=== PATIENT | male | born 1955 | race African-American/Black ===

== ENCOUNTER 2017-01-07 14:30 | Emergency (ER) | payer OTHER ==
[~2017-01-07] VITALS: Ht 172.7 cm; Wt 75.0 kg
[2017-01-07] MEDS ORDERED: ASPI81 PO (14:34)
[2017-01-07] MEDS ORDERED: METF500T4 PO (14:34)
[2017-01-07 14:42] LABS: GLUCOSE,POINT OF CARE 305 MG/DL (70-110)
[2017-01-07 15:06] LABS: BASOPHILS # (AUTO) 0.01 K/uL (0.00-0.20); BASOPHILS % (AUTO) 0.1 % (0.0-2.0); EOSINOPHILS # (AUTO) 0.11 K/uL (0.00-0.70); EOSINOPHILS % (AUTO) 0.91 % (1.0-6.0); HEMATOCRIT 41.8 % (41-53); HEMOGLOBIN 13.5 g/dL (13.5-17.5); LYMPHOCYTES # (AUTO) 0.9 K/uL (1.0-4.8); LYMPHOCYTES % (AUTO) 7.6 % (22.0-44.0); MEAN CORPUSCULAR HEMOGLOBIN 33.7 pg (26.0-34.0); MEAN CORPUSCULAR HGB CONC 32.4 G/dL (31.0-37.0); MEAN CORPUSCULAR VOLUME 104 fL (80-100); MONOCYTES # (AUTO) 0.9 K/uL (0.1-1.0); MONOCYTES % (AUTO) 7.1 % (2.0-9.0); NEUTROPHILS # (AUTO) 10.5 K/uL (1.8-7.7); PLATELET COUNT (AUTO) 181 K/uL (150-450); RED BLOOD CELL COUNT(AUTO) 4.01 MIL/uL (4.50-5.90); WHITE BLOOD COUNT (AUTO) 12.4 K/uL (4.5-11.0)
[2017-01-07 15:18] LABS: ANION GAP 14 mmol/L (8-16); CALCIUM, TOTAL 10.7 mg/dL (8.8-10.5); CARBON DIOXIDE 27 mmol/L (22-29); CHLORIDE 94 mmol/L (98-107); CREATININE 1.03 mg/dL (0.60-1.30); GLOMERULAR FILTR. RATE CALC > 60 mL/min (>60); POTASSIUM 5.2 mmol/L (3.5-5.1); SODIUM SERUM 135 mmol/L (136-145); UREA NITROGEN, BLOOD 25 mg/dL (7-18)
[2017-01-07 15:39] LABS: NEUTROPHILS % (AUTO) 84.4 % (40.0-70.0); RBC MORPHOLOGY COMMENT ABNORMAL RBC MORPH
[2017-01-07 15:54] LABS: APPEARANCE,URINE CLOUDY (CLEAR); GLUCOSE, URINE (UA) >=1000 mg/dL (NEGATIVE); KETONES,URINE 40 mg/dL (NEGATIVE); LEUKOCYTE ESTERASE ,URINE SMALL (NEGATIVE); OCCULT BLOOD,URINE SMALL (NEGATIVE); PROTEIN,URINE POS 1+ (NEGATIVE)
[2017-01-07 15:57] VITALS: BP 161/112
[2017-01-07 15:57] LABS: ADD UA MICROSCOPIC YES
[2017-01-07 16:00] LABS: SQUAMOUS EPITHELIAL CELL,UR Few /LPF (None Seen); WBC,URINE 26-50 /HPF (0-5)
== END 2017-01-07 16:26 | disposition home or self-care (01) ==
LOC: EMS 14:32
DX: N41.0 Acute prostatitis (principal); K59.00 Constipation, unspecified; E11.9 Type 2 diabetes mellitus without complications; I10 Essential (primary) hypertension; Z79.82 Long term (current) use of aspirin
CPT/HCPCS: 82962; 87086; 99284

== ENCOUNTER 2017-01-09 05:47 | Inpatient (IN) | payer OTHER ==
[~2017-01-09] VITALS: Ht 172.7 cm; Wt 65.7 kg
[~2017-01-09 05:47] MED LIST: ASPI81 PO; METF500T4 PO
[2017-01-09 05:57] LABS: GLUCOSE,POINT OF CARE 330 MG/DL (70-110)
[2017-01-09] MEDS ORDERED: SODIUM CHLORIDE 0.9% 1,000 ML IV ONE (06:30)
[2017-01-09 07:01] LABS: HEMATOCRIT 38.1 % (41-53); HEMOGLOBIN 12.7 g/dL (13.5-17.5); MEAN CORPUSCULAR HEMOGLOBIN 34.2 pg (26.0-34.0); MEAN CORPUSCULAR HGB CONC 33.5 G/dL (31.0-37.0); MEAN CORPUSCULAR VOLUME 102 fL (80-100); PLATELET COUNT (AUTO) 205 K/uL (150-450); RED BLOOD CELL COUNT(AUTO) 3.73 MIL/uL (4.50-5.90); RED CELL DISTRIBUTION WIDTH 13.1 % (11.5-14.5); WHITE BLOOD COUNT (AUTO) 14.3 K/uL (4.5-11.0)
[2017-01-09 07:23] LABS: ALANINE AMINOTRANSFERASE 21 U/L (12-78); ALBUMIN 3.6 g/dL (3.4-5.0); ANION GAP 18 mmol/L (8-16); ASPARTATE AMINOTRANSFERASE 15 U/L (15-37); BILIRUBIN,TOTAL 0.8 mg/dL (0.1-1.0); CALCIUM, TOTAL 10.1 mg/dL (8.8-10.5); CARBON DIOXIDE 20 mmol/L (22-29); CHLORIDE 86 mmol/L (98-107); CREATINE KINASE, TOTAL 66 U/L (39-308); CREATININE 0.88 mg/dL (0.60-1.30); GLOMERULAR FILTR. RATE CALC > 60 mL/min (>60); POTASSIUM 3.5 mmol/L (3.5-5.1); TOTAL PROTEIN, SERUM 8.8 g/dL (6.4-8.2); UREA NITROGEN, BLOOD 21 mg/dL (7-18)
[2017-01-09 07:26] LABS: SODIUM SERUM 124 mmol/L (136-145)
[2017-01-09 07:34] LABS: PROTHROMBIN TIME 10.3 SEC (9.4-11.6)
[2017-01-09 07:41] LABS: B-TYPE NATRIURETIC PEPTIDE 9 pg/mL (0-100)
[2017-01-09 08:32] LABS: GLUCOSE,POINT OF CARE 290 MG/DL (70-110)
[2017-01-09 08:35] LABS: GLUCOSE, URINE (UA) >=1000 mg/dL (NEGATIVE); KETONES,URINE 40 mg/dL (NEGATIVE); LEUKOCYTE ESTERASE ,URINE NEGATIVE (NEGATIVE); OCCULT BLOOD,URINE LARGE (NEGATIVE); PROTEIN,URINE NEGATIVE (NEGATIVE)
[2017-01-09 08:39] LABS: ADD UA MICROSCOPIC YES; APPEARANCE,URINE SLIGHTLY CLOUDY (CLEAR)
[2017-01-09 08:40] LABS: RBC,URINE 51-100 /HPF (0-2); WBC,URINE None Seen /HPF (0-5)
[2017-01-09 09:19] LABS: BAND NEUTROPHILS % (MANUAL) 20 % (1-5); LYMPHOCYTES % (MANUAL) 6 % (22-44); RBC MORPHOLOGY COMMENT ABNORMAL R; TOTAL CELLS COUNTED 100
[2017-01-09 11:32] LABS: GLUCOSE,POINT OF CARE 267 MG/DL (70-110)
[2017-01-09] MEDS ORDERED: DEXTROSE 50%-WATER 25 GM/50 ML SYRINGE IVP PRN (12:30)
[2017-01-09] MEDS ORDERED: MAGNESIUM HYDROXIDE SUSPENSION 30 ML UDCUP PO PRN (12:30)
[2017-01-09] MEDS ORDERED: ACETAMINOPHEN 325 MG TABLET PO PRN (12:30)
[2017-01-09] MEDS: CefTRIAXone 1 GM/DEXTROSE 50 ML IV SCH (13:14)
[2017-01-09] MEDS: TAMSULOSIN HCL 0.4 MG CAPSULE PO SCH ×2 (13:15→20:51)
[2017-01-09 15:04] VITALS: BP 164/99
[2017-01-09 16:38] VITALS: BP 141/92
[2017-01-09] MEDS: INSULIN ASPART 100 UNITS/ML SQ PRN ×2 (17:20→21:02)
[2017-01-09 19:12] LABS: GLUCOSE COMMENT 1 Received Meds; GLUCOSE,POINT OF CARE 219 MG/DL (70-110)
[2017-01-09 19:13] VITALS: BP 135/89
[2017-01-09] MEDS: DOCUSATE SODIUM 100 MG CAPSULE PO SCH (20:51)
[2017-01-09 23:09] VITALS: BP 105/73
[2017-01-10 04:13] VITALS: BP 133/77
[2017-01-10 04:27] LABS: GLUCOSE COMMENT 1 Received Meds; GLUCOSE,POINT OF CARE 296 MG/DL (70-110)
[2017-01-10] MEDS: INSULIN ASPART 100 UNITS/ML SQ PRN ×4 (06:11→22:39)
[2017-01-10 07:33] VITALS: BP 107/62
[2017-01-10] MEDS: TAMSULOSIN HCL 0.4 MG CAPSULE PO SCH ×2 (09:02→20:44)
[2017-01-10] MEDS: PANTOPRAZOLE SODIUM 40 MG DR TABLET PO SCH (09:02)
[2017-01-10] MEDS: DOCUSATE SODIUM 100 MG CAPSULE PO SCH ×2 (09:02→20:44)
[2017-01-10 11:06] LABS: GLUCOSE COMMENT 1 Received Meds; GLUCOSE,POINT OF CARE 213 MG/DL (70-110)
[2017-01-10 11:38] VITALS: BP 122/73
[2017-01-10] MEDS: CefTRIAXone 1 GM/DEXTROSE 50 ML IV SCH (11:51)
[2017-01-10 11:58] LABS: GLUCOSE COMMENT 1 Received Meds; GLUCOSE,POINT OF CARE 317 MG/DL (70-110)
[2017-01-10 12:25] LABS: BASOPHILS # (AUTO) 0.07 K/uL (0.00-0.20); BASOPHILS % (AUTO) 0.7 % (0.0-2.0); EOSINOPHILS # (AUTO) 0.15 K/uL (0.00-0.70); EOSINOPHILS % (AUTO) 1.57 % (1.0-6.0); HEMATOCRIT 38.7 % (41-53); LYMPHOCYTES # (AUTO) 1.4 K/uL (1.0-4.8); LYMPHOCYTES % (AUTO) 14.3 % (22.0-44.0); MEAN CORPUSCULAR HEMOGLOBIN 34.4 pg (26.0-34.0); MEAN CORPUSCULAR HGB CONC 33.5 G/dL (31.0-37.0); MEAN CORPUSCULAR VOLUME 103 fL (80-100); MONOCYTES # (AUTO) 0.8 K/uL (0.1-1.0); MONOCYTES % (AUTO) 8.7 % (2.0-9.0); NEUTROPHILS # (AUTO) 7.3 K/uL (1.8-7.7); NEUTROPHILS % (AUTO) 74.8 % (40.0-70.0); PLATELET COUNT (AUTO) 233 K/uL (150-450); RED BLOOD CELL COUNT(AUTO) 3.76 MIL/uL (4.50-5.90); RED CELL DISTRIBUTION WIDTH 13.1 % (11.5-14.5); WHITE BLOOD COUNT (AUTO) 9.8 K/uL (4.5-11.0)
[2017-01-10 12:29] LABS: RBC MORPHOLOGY COMMENT ABNORMAL RBC MORPH
[2017-01-10 12:36] LABS: ANION GAP 12 mmol/L (8-16); CARBON DIOXIDE 27 mmol/L (22-29); CHLORIDE 97 mmol/L (98-107); CREATININE 0.82 mg/dL (0.60-1.30); GLOMERULAR FILTR. RATE CALC > 60 mL/min (>60); POTASSIUM 3.8 mmol/L (3.5-5.1); SODIUM SERUM 136 mmol/L (136-145); UREA NITROGEN, BLOOD 13 mg/dL (7-18)
[2017-01-10 15:54] VITALS: BP 116/67
[2017-01-10 17:53] LABS: GLUCOSE COMMENT 1 Received Meds; GLUCOSE,POINT OF CARE 420 MG/DL (70-110)
[2017-01-10 19:57] VITALS: BP 114/75
[2017-01-10] MEDS: CEPHALEXIN MONOHYDRATE 500 MG CAPSULE PO SCH (20:44)
[2017-01-10 22:22] LABS: GLUCOSE COMMENT 1 Received Meds; GLUCOSE,POINT OF CARE 309 MG/DL (70-110)
[2017-01-11 00:05] VITALS: BP 100/65
[2017-01-11 05:09] VITALS: BP 134/90
[2017-01-11] MEDS: INSULIN ASPART 100 UNITS/ML SQ PRN ×4 (05:49→20:56)
[2017-01-11 06:12] LABS: GLUCOSE COMMENT 1 Received Meds; GLUCOSE,POINT OF CARE 321 MG/DL (70-110)
[2017-01-11 07:18] VITALS: BP 117/77
[2017-01-11] MEDS: DOCUSATE SODIUM 100 MG CAPSULE PO SCH ×2 (09:00→20:51)
[2017-01-11] MEDS: TAMSULOSIN HCL 0.4 MG CAPSULE PO SCH ×2 (09:00→20:51)
[2017-01-11] MEDS: PANTOPRAZOLE SODIUM 40 MG DR TABLET PO SCH (09:00)
[2017-01-11] MEDS: CEPHALEXIN MONOHYDRATE 500 MG CAPSULE PO SCH ×3 (09:01→20:51)
[2017-01-11 11:36] VITALS: BP 115/74
[2017-01-11] MEDS ORDERED: SODIUM CHLORIDE 0.9% 500 ML IV ONE (12:47)
[2017-01-11] MEDS: CefTRIAXone 1 GM/DEXTROSE 50 ML IV SCH (13:14)
[2017-01-11] MEDS ORDERED: DEXTROSE 50%-WATER 25 GM/50 ML SYG IVP PRN (13:45)
[2017-01-11] MEDS: INSULIN DETEMIR 100 UNITS/ML SQ SCH ×2 (14:19→20:55)
[2017-01-11 15:58] VITALS: BP 131/85
[2017-01-11 18:02] LABS: GLUCOSE COMMENT 1 Received Meds; GLUCOSE,POINT OF CARE 264 MG/DL (70-110)
[2017-01-11 19:53] VITALS: BP 117/83
[2017-01-11 19:57] LABS: GLUCOSE COMMENT 1 Received Meds; GLUCOSE,POINT OF CARE 460 MG/DL (70-110)
[2017-01-12 00:12] VITALS: BP 104/71
[2017-01-12 04:17] VITALS: BP 133/82
[2017-01-12] MEDS: INSULIN ASPART 100 UNITS/ML SQ PRN ×2 (05:43→12:21)
[2017-01-12 07:15] VITALS: BP 120/60
[2017-01-12 07:42] LABS: GLUCOSE COMMENT 1 Received Meds; GLUCOSE,POINT OF CARE 166 MG/DL (70-110)
[2017-01-12 07:42] LABS: GLUCOSE COMMENT 1 Received Meds; GLUCOSE,POINT OF CARE 220 MG/DL (70-110)
[2017-01-12] MEDS: DOCUSATE SODIUM 100 MG CAPSULE PO SCH (07:58)
[2017-01-12] MEDS: CEPHALEXIN MONOHYDRATE 500 MG CAPSULE PO SCH ×2 (07:58→16:29)
[2017-01-12] MEDS: TAMSULOSIN HCL 0.4 MG CAPSULE PO SCH (07:58)
[2017-01-12] MEDS: PANTOPRAZOLE SODIUM 40 MG DR TABLET PO SCH (07:58)
[2017-01-12] MEDS: INSULIN DETEMIR 100 UNITS/ML SQ SCH (08:00)
[2017-01-12 11:10] VITALS: BP 109/78
[2017-01-12] MEDS: CefTRIAXone 1 GM/DEXTROSE 50 ML IV SCH (12:24)
[2017-01-12 15:36] VITALS: BP 121/84
[2017-01-12] MEDS ORDERED: CEPH500 PO (15:49)
[2017-01-12] MEDS ORDERED: TAMS0.4C32 PO (15:49)
[2017-01-14 00:46] LABS: GLUCOSE COMMENT 1 Received Meds; GLUCOSE,POINT OF CARE 253 MG/DL (70-110)
== END 2017-01-12 16:40 | disposition home or self-care (01) | DRG 463 ==
LOC: EMS 05:47 → 6N 14:05 → EMS 14:21 → 6N 14:51
PROVIDERS: ADMIT Internal Medicine; ATTEND Internal Medicine
DX: N39.0 Urinary tract infection, site not specified (principal); E11.65 Type 2 diabetes mellitus with hyperglycemia; I10 Essential (primary) hypertension; N40.1 Benign prostatic hyperplasia with lower urinary tract symptoms; E86.0 Dehydration; N13.8 Other obstructive and reflux uropathy; E87.1 Hypo-osmolality and hyponatremia; R33.8 Other retention of urine; R31.9 Hematuria, unspecified; B96.89 Other specified bacterial agents as the cause of diseases classified elsewhere; Z87.891 Personal history of nicotine dependence; Z79.84 Long term (current) use of oral hypoglycemic drugs; Z79.82 Long term (current) use of aspirin; Z83.3 Family history of diabetes mellitus
CPT/HCPCS: 51702; 74176; 82962; 83930; 83935; 84300; 93005; 96360; 96361; 99285; J0696; J7030; J7040